=== PATIENT | female | born 1975 | race Caucasian/White ===

== ENCOUNTER 2020-03-14 02:00 | Emergency (ER) | payer OTHER ==
[~2020-03-14] VITALS: Ht 172.7 cm; Wt 87.1 kg
[2020-03-14 02:03] VITALS: BP 133/74
--- NOTE | 2020-03-14 02:05 | NUR ---
to lobby a/w bed ambulatory
--- NOTE | 2020-03-14 02:23 | NUR ---
seen and examined by romario with orders and carried out.
[2020-03-14] MEDS ORDERED: ACETAMINOPHEN EXTRA STRENGTH 500 MG TAB PO ONE (02:30)
[2020-03-14 03:47] VITALS: BP 133/74
== END 2020-03-14 03:47 | disposition home or self-care (01) ==
LOC: MED 02:00
DX: S43.402A Unspecified sprain of left shoulder joint, initial encounter (principal); X58.XXXA Exposure to other specified factors, initial encounter; Y93.89 Activity, other specified; Y92.89 Other specified places as the place of occurrence of the external cause; Y99.8 Other external cause status
CPT/HCPCS: 73030; 99283